=== PATIENT | male | born 1950 | race Caucasian/White ===

== ENCOUNTER 2016-09-28 08:26 | Emergency (ER) | payer MEDICARE, BC ==
[2016-09-28 08:39] VITALS: BP 146/82
--- NOTE | 2016-09-28 09:06 | UC ---
Skin Complaint HPI - HPI Summary HPI Summary: 66 yo male with upper back rash He states he gets this rash ever yr to year and a half for the past 7-8 yr itchy resolves in a month trying OTC antifungal cr without improvement long hx sun exposure with sun damaged skin SCC right wrist/BCC nose - History of Current Complaint Chief Complaint: UCRash Stated Complaint: RASH Hx Obtained From: Patient Onset/Duration: Gradual Onset, Lasting Weeks Timing: Constant Onset Severity: Mild Current Severity: Mild Pain Intensity: 0 Pain Scale Used: 0-10 Numeric Location: Other - upper back Character: Pruritus, Redness, Raised Aggravating: Nothing Alleviating: Nothing - Allergy/Home Medications Allergies/Adverse Reactions: Allergies Allergy/AdvReac Type Severity Reaction Status Date / Time Secobarbital [From Seconal] Allergy Vomiting Verified 09/28/16 08:39 Home Medications: Home Medications Lisinopril [Prinivil TAB 20 mg] 20 mg PO DAILY 09/28/16 [History Confirmed 09/28] Tadalafil [Cialis] 5 mg PO DAILY 09/28/16 [History Confirmed 09/28/16] Review of Systems Constitutional: Negative Skin: Rash Eyes: Negative ENT: Negative Respiratory: Negative Cardiovascular: Negative Gastrointestinal: Negative Genitourinary: Negative Motor: Negative Neurovascular: Negative Musculoskeletal: Negative Neurological: Negative Psychological: Negative All Other Systems Reviewed And Are Negative: Yes PMH/Surg Hx/FS Hx/Imm Hx Previously Healthy: Yes Endocrine History: Dyslipidemia Cardiovascular History: Hypertension - Surgical History Surgical History: Yes Surgery Procedure, Year, and Place: 1986 INTESTINAL; APPY; INGUINAL HERNIA - Family History Known Family History: Positive: Hypertension - Social History Alcohol Use: Occasionally Substance Use Type: None Smoking Status (MU): Never Smoked Tobacco Physical Exam Triage Information Reviewed: Yes Appearance: Well-Appearing, No Pain Distress, Well-Nourished Vital Signs: Initial Vital Signs Temp 98.5 F 09/28/16 08:31 Pulse 69 09/28/16 08:31 Resp 14 09/28/16 08:31 BP 146/82 09/28/16 08:31 Pulse Ox 99 09/28/16 08:31 Vital Signs Reviewed: Yes Eyes: Positive: Conjunctiva Clear ENT: Positive: Hearing grossly normal. Negative: Nasal congestion, Nasal drainage, Tonsillar exudate, Trismus, Muffled/hoarse voice Dental Exam: Normal Neck: Positive: Supple, Nontender, No Lymphadenopathy Respiratory: Positive: Lungs clear, Normal breath sounds, No respiratory distress Cardiovascular: Positive: RRR, No Murmur Musculoskeletal: Positive: ROM Intact, No Edema Neurological: Positive: Alert Psychological Exam: Normal Skin Exam: Other - see image Course/Dx - Diagnoses Provider Diagnoses: rash of uncertain cause. ? contact dermatitis Discharge - Discharge Plan Condition: Stable Disposition: HOME Prescriptions: Triamcinolone 0.5% CREAM(NF) [Triamcinolone 0.5% CREAM*] 1 applic TOPICAL BID # 60 tube Patient Education Materials: Acute Rash (ED) Referrals: Mak Núñez MD [Primary Care Provider] - 1 Week (recheck in 1-2 weeks if not noting improvement) Images Front/Back of Body, Lg ([place]): 1 - red/raise/irregular border/some slight scale
== END 2016-09-28 09:12 | disposition home or self-care (01) ==
LOC: UCCORT 08:26
DX: R21 Rash and other nonspecific skin eruption (principal); E78.5 Hyperlipidemia, unspecified; I10 Essential (primary) hypertension
CPT/HCPCS: 99212; G0463

== ENCOUNTER 2017-03-16 16:12 | Emergency (ER) | payer MEDICARE, BC ==
--- NOTE | 2017-03-16 16:51 | UC ---
UC General HPI - HPI Summary HPI Summary: 66 year old male presents with complains of a stitch popping out from his right wrist wound. - History of Current Complaint Chief Complaint: UCSkin Stated Complaint: POPPED STITCH Time Seen by Provider: 03/16/17 16:49 Hx Obtained From: Patient Onset/Duration: Sudden Onset Onset Severity: Moderate Current Severity: Moderate - Allergy/Home Medications Allergies/Adverse Reactions: Allergies Allergy/AdvReac Type Severity Reaction Status Date / Time Secobarbital [From Seconal] Allergy Vomiting Verified 03/16/17 16:48 PMH/Surg Hx/FS Hx/Imm Hx Previously Healthy: Yes - Surgical History Surgical History: Yes Surgery Procedure, Year, and Place: 1986 INTESTINAL; APPY; INGUINAL HERNIA - Family History Known Family History: Positive: Hypertension - Social History Alcohol Use: Occasionally Substance Use Type: None Smoking Status (MU): Never Smoked Tobacco Review of Systems Constitutional: Negative Skin: Other - gaping right wirst wound Eyes: Negative ENT: Negative Respiratory: Negative Cardiovascular: Negative Gastrointestinal: Negative Genitourinary: Negative Motor: Negative Neurovascular: Negative Musculoskeletal: Negative Neurological: Negative Psychological: Negative All Other Systems Reviewed And Are Negative: Yes Physical Exam Triage Information Reviewed: Yes Vital Signs: Initial Vital Signs Temp 37.0 C 03/16/17 16:36 Pulse 67 03/16/17 16:36 Resp 20 03/16/17 16:36 BP 153/82 03/16/17 16:36 Vital Signs Reviewed: Yes Eye Exam: Normal ENT Exam: Normal Dental Exam: Normal Neck exam: Normal Neck: Positive: 1 Respiratory Exam: Normal Cardiovascular Exam: Normal Abdominal Exam: Normal Musculoskeletal Exam: Normal Neurological Exam: Normal Psychological Exam: Normal Skin: Positive: Other - gaping right wrist wound Course/Dx - Course Course Of Treatment: right wrist wound edges approxiamated with dermabond and steri strips - Differential Dx - Multi-Symptom Provider Diagnoses: gaping right wrist wound post mass removal by dermatology. Discharge - Discharge Plan Condition: Stable Disposition: HOME Prescriptions: Cephalexin CAP* [Keflex CAP*] 500 mg PO QID #40 cap Patient Education Materials: Care For Your Stitches (ED), Acute Wound Care (ED) Referrals: Mak Núñez MD [Primary Care Provider] -
[2017-03-16 16:53] VITALS: BP 153/82
== END 2017-03-16 18:01 | disposition home or self-care (01) ==
LOC: UCCORT 16:12
DX: T81.31XA Disruption of external operation (surgical) wound, not elsewhere classified, initial encounter (principal); B95.61 Methicillin susceptible Staphylococcus aureus infection as the cause of diseases classified elsewhere
CPT/HCPCS: 12002; 87070; 87077; 87186; 87205; 87640; 87641; 99212; G0463

== ENCOUNTER 2017-10-16 09:17 | Emergency (ER) | payer MEDICARE ==
[2017-10-16 09:35] VITALS: BP 162/75
--- NOTE | 2017-10-16 10:28 | UC ---
Back Pain HPI - HPI Summary HPI Summary: Patient states that 2-3 months ago he was experiencing a sore back for approximately one month. He self treated with occasional Advil and heat. The back pain resolved for about one month. He then had some recurrent low back pain for a day. Again, it felt better/resolved. Yesterday, he started to have reocurring back pain. He describes it as sharp. He gestures across his low back. He states that occasionally he will get a sharp tingling down his right leg and on occasion into both legs. He notes that it seemed to get worse after he swung a golf club for the first time yesterday. Pt denies any associated fever, abdominal pain, saddle anesthesia, bowel/bladder dysfunction and weakness to his legs. He notes that he gets relief if he sits completely still in a firm chair with good support. - History of Current Complaint Hx Obtained From: Patient Pain Intensity: 9 Aggravating Factor(s): Other - extension in low back Alleviating Factor(s): Rest Associated Signs And Symptoms: Negative: Swelling, Fever, Weakness, Abdominal Pain, Flank Pain, Bladder Incontinence, Bowel Incontinence, Weight Loss - Risk Factors Cauda Equina Risk Factors: Negative Epidural Abscess Risk Factors: Negative <Lyly Bruno - Last Filed: 10/16/17 11:52> <Andre Rosario - Last Filed: 10/18/17 07:13> - History of Current Complaint Chief Complaint: UCBackPain Stated Complaint: BACK PAIN Time Seen by Provider: 10/16/17 10:20 - Allergies/Home Medications Allergies/Adverse Reactions: Allergies Allergy/AdvReac Type Severity Reaction Status Date / Time secobarbital Allergy Vomiting Verified 10/16/17 09:28 Home Medications: Home Medications Naproxen Sodium [Aleve] 220 mg PO BID PRN 10/16/17 [History Confirmed 10/16/17] PMH/Surg Hx/FS Hx/Imm Hx Endocrine History: Hyperthyroidism Cardiovascular History: Hypertension - Surgical History Surgical History: Yes Surgery Procedure, Year, and Place: 1987 INTESTINAL; APPY; INGUINAL HERNIA - Family History Known Family History: Positive: Hypertension - Social History Occupation: Retired Alcohol Use: Occasionally Substance Use Type: None Smoking Status (MU): Never Smoked Tobacco - Immunization History Most Recent Tetanus Shot: unknown <Lyly Bruno - Last Filed: 10/16/17 11:52> Review of Systems Constitutional: Negative Skin: Negative Eyes: Negative ENT: Negative Respiratory: Negative Cardiovascular: Negative Gastrointestinal: Negative Genitourinary: Negative Motor: Other - back pain Neurovascular: Negative Musculoskeletal: Negative Neurological: Negative Psychological: Negative Is Patient Immunocompromised?: No All Other Systems Reviewed And Are Negative: Yes <Lyly Bruno - Last Filed: 10/16/17 11:52> Physical Exam Triage Information Reviewed: Yes Appearance: Well-Appearing Vital Signs: Initial Vital Signs Temp 98.4 F 10/16/17 09:29 Pulse 57 10/16/17 09:29 Resp 16 10/16/17 09:29 BP 162/75 10/16/17 09:29 Pulse Ox 100 10/16/17 09:29 Eyes: Positive: Conjunctiva Clear ENT: Positive: Normal ENT inspection Neck: Positive: Supple, Nontender, No Lymphadenopathy Respiratory: Positive: Lungs clear, Normal breath sounds Cardiovascular: Positive: RRR, No Murmur, Pulses Normal Abdomen Description: Positive: Nontender, No Organomegaly, Soft. Negative: Bruit, CVA Tenderness (R), CVA Tenderness (L), Distended, Guarding Bowel Sounds: Positive: Present Musculoskeletal: Positive: Other: - Inspection of the cervicothoracic and lumbar spine shows no gross deformity swelling or discoloration and no rash. The spine and paraspinal muscles are nontender to palpation. Patient demonstrates active range of motion at all levels and extension in the low back reproduces and worsens patient's pain. 5 out of 5 strength and 2+ reflexes 4. No saddle anesthesia. Has a slow but steady gait. Negative straight leg raises bilaterally. No tenderness with palpation of either sciatic notch. Neurological: Positive: Alert Psychological: Positive: Age Appropriate Behavior Skin Exam: Normal <Lyly Bruno - Last Filed: 10/16/17 11:52> Vital Signs: Initial Vital Signs Temp 98.4 F 10/16/17 09:29 Pulse 57 10/16/17 09:29 Resp 16 10/16/17 09:29 BP 162/75 10/16/17 09:29 Pulse Ox 100 10/16/17 09:29 <Adnre Rosario - Last Filed: 10/18/17 07:13> Diagnostics - Radiology No standard instances Radiology Interpretation Completed By: Radiologist - LS NAD <DamionLyly - Last Filed: 10/16/17 11:52> Back Pain Course/Dx - Course Course Of Treatment: Lumbar spine x-ray show no acute disease. History and physical exam are consistent with low back pain and lumbar radiculopathy. No concern for acute abdomen, infection or cauda equina. Since OTC NSAIDs are not helpful we will discontinue all use. I'm going to treat with Medrol Dosepak and muscle relaxer because patient did mention that sometimes he will get spasm in the back with this. I stressed the need for close follow-up and will provide physical therapy referral as well. Patient's blood pressure is elevated on this visit. He does have a history of hypertension and I feel is acute elevation is due to his pain. He has follow up with his primary care we' ll have this rechecked in 5 days. - Differential Dx/Diagnosis Provider Diagnoses: Low back pain. Lumbar radiculopathy. <Lyly Bruno - Last Filed: 10/16/17 11:52> Discharge - Sign-Out/Discharge Documenting (check all that apply): Discharge/Admit/Transfer - Billing Disposition and Condition Condition: STABLE Disposition: Home <DamionLyly - Last Filed: 10/16/17 11:52> - Billing Disposition and Condition Condition: STABLE Disposition: Home <Andre Rosario - Last Filed: 10/18/17 07:13> - Discharge Plan Condition: Stable Disposition: HOME Prescriptions: Cyclobenzaprine TAB* [Flexeril 10 MG TAB*] 10 mg PO TID #10 tab methylPREDNISolone [Medrol Dosepak 4 MG*] 0 mg PO .SEE PARAM INSTRUCTION #1 tab Patient Education Materials: Lumbar Radiculopathy (ED), Back Pain (ED) Referrals: Mak Núñez MD [Primary Care Provider] - 5 Days Additional Instructions: Per institutional requirements, I have reviewed the chart, however, I was not consulted specifically or made aware of this patient by the above midlevel provider. I did not personally evaluate, interact with , or disposition this patient.
--- NOTE | 2017-10-16 11:47 | RAD ---
Indication: Back pain. 5 views of lumbar spine demonstrate vertebral bodies to be normal in height. Disc spaces all well-preserved. No fracture is identified. IMPRESSION: No fracture of the lumbar spine is noted.
== END 2017-10-16 11:58 | disposition home or self-care (01) ==
LOC: UCCORT 09:17
DX: I10 Essential (primary) hypertension (principal); Z88.8 Allergy status to other drugs, medicaments and biological substances; M54.16 Radiculopathy, lumbar region
CPT/HCPCS: 72110; 99212; G0463